=== PATIENT | female | born 1930 | race African-American/Black ===

== ENCOUNTER 2016-09-08 13:57 | Inpatient (IN) | payer OTHER, BC ==
[2016-09-08 15:01] LABS: EOSINOPHIL 1.8 % (0-4.5); MCH 29.8 pg (25.7-33.7); MCHC 34.1 g/dl (32.0-36.0); MEAN CELL VOLUME 87.4 fl (80-96); MEAN PLT VOLUME 10.4 fl (7.5-11.1); NEUTROPHILS 66.9 % (42.8-82.8); PLATELET COUNT 176 K/MM3 (134-434); RDW 15.7 % (11.6-15.6); WHITE BLOOD COUNT 6.3 K/mm3 (4.0-10.0)
--- NOTE | 2016-09-08 15:21 | PDOC ---
History of Present Illness <Maxwell Bey - Last Filed: 09/08/16 15:21> - General History Source: Patient, Old Records Exam Limitations: No Limitations - History of Present Illness Initial Comments: 09/08/16 14:21 The patient is an 86-year-old woman, accompanied by family, with a significant past medical history of hypertension, myocardial infarction, diabetes mellitus, gastrointestinal bleed and diverticulitis who presents to the emergency department for further evaluation of rectal bleeding. Patient states that she experienced some diffuse abdominal cramping today, intermittent in nature, with no exacerbating/alleviating factors. She had a bowel movement this morning and noticed streaks of maroon blood with a clot. She denies nay associated symptoms of chest pain, lightheadedness, dizziness, palpitations, visual changes, headaches, nausea, vomiting, fever, chills. Allergies: No Known Drug Allergies Past Surgical History: None reported Social History: No tobacco, EtOH and recreational drug use. Primary Care Physician: N/A <Shannan Winter - Last Filed: 09/08/16 16:23> <Remi Jett - Last Filed: 09/08/16 17:36> <Bettina Burrell - Last Filed: 09/10/16 02:18> - General Chief Complaint: Rectal Bleed Stated Complaint: BLOOD IN STOOL Time Seen by Provider: 09/08/16 14:21 Past History - Past Medical History Anemia: No Asthma: No Cancer: No Cardiac Disorders: Yes ([place]) CVA: No COPD: No CHF: No Dementia: No Diabetes: Yes Dialysis: No GI Disorders: Yes (DIVERTICULITIS/RECTAL BLEED) Disorders: No HTN: Yes Hypercholesterolemia: No HIV: No Kidney Stones: No Liver Disease: No Seizures: No Thyroid Disease: No - Surgical History Abdominal Surgery: No Appendectomy: No Cardiac Surgery: No Cholecystectomy: No Lung Surgery: No Neurologic Surgery: No Orthopedic Surgery: No - Immunization History Immunization Up to Date: Yes - Psycho/Social/Smoking Cessation Hx Anxiety: No Suicidal Ideation: No Smoking Status: No Smoking History: Never smoked Number of Cigarettes Smoked Daily: 0 Hx Alcohol Use: No Drug/Substance Use Hx: No Substance Use Type: None Hx Substance Use Treatment: No <Maxwell Bey - Last Filed: 09/08/16 15:21> <Shannan Winter - Last Filed: 09/08/16 16:23> <Remi Jett - Last Filed: 09/08/16 17:36> <Bettina Burrell - Last Filed: 09/10/16 02:18> - Past Medical History Allergies/Adverse Reactions: Allergies Allergy/AdvReac Type Severity Reaction Status Date / Time No Known Drug Allergies Allergy Verified 09/08/16 14:01 Home Medications: Ambulatory Orders Amlodipine Besylate [Norvasc -] 10 mg PO DAILY #0 tablet 02/03/13 Valsartan/Hydrochlorothiazide [Diovan Hct 320-25 mg Tablet] 1 combo PO DAILY Aspirin 81 mg PO DAILY #0 tab.chew 09/02/13 Hydrocodone/Acetaminophen [Lortab 7.5-500] 1 - 2 tab PO Q6H PRN #30 tablet 09/02 Review of Systems - Review of Systems Able to Perform ROS?: Yes Comments:: 09/08/16 14:21 GENERAL/CONSTITUTIONAL: No fever or chills. No weakness. HEAD, EYES, EARS, NOSE AND THROAT: No change in vision. No ear pain or discharge. No sore throat. CARDIOVASCULAR: No chest pain or shortness of breath. RESPIRATORY: No cough, wheezing, or hemoptysis. GASTROINTESTINAL: Yes: Hematochezia. No nausea, vomiting, diarrhea or constipation. GENITOURINARY: No dysuria, frequency, or change in urination. MUSCULOSKELETAL: No joint or muscle swelling or pain. No neck or back pain. SKIN: No rash NEUROLOGIC: No headache, vertigo, loss of consciousness, or change in strength/ sensation. ENDOCRINE: No increased thirst. No abnormal weight change. HEMATOLOGIC/LYMPHATIC: No anemia, easy bleeding, or history of blood clots. ALLERGIC/IMMUNOLOGIC: No hives or skin allergy. <Shannan Winter - Last Filed: 09/08/16 16:23> *Physical Exam - Vital Signs Last Vital Signs Temp Pulse Resp BP Pulse Ox 98.0 F 100 H 20 119/66 98 09/08/16 13:58 09/08/16 13:58 09/08/16 13:58 09/08/16 13:58 09/08/16 13:58 <Maxwell Bey - Last Filed: 09/08/16 15:21> - Vital Signs Last Vital Signs Temp Pulse Resp BP Pulse Ox 98.0 F 100 H 20 119/66 98 09/08/16 13:58 09/08/16 13:58 09/08/16 13:58 09/08/16 13:58 09/08/16 13:58 - Physical Exam Comments: 09/08/16 14:21 GENERAL: Awake, alert, and fully oriented, in no acute distress HEAD: No signs of trauma EYES: PERRLA, EOMI, sclera anicteric, conjunctiva clear ENT: Auricles normal inspection, hearing grossly normal, nares patent, oropharynx clear without exudates. Moist mucosa NECK: Normal ROM, supple, no lymphadenopathy, JVD, or masses LUNGS: Breath sounds equal, clear to auscultation bilaterally. No wheezes, and no crackles HEART: Regular rate and rhythm, normal S1 and S2, no murmurs, rubs or gallops ABDOMEN: Soft, nontender, normoactive bowel sounds. No guarding, no rebound. No masses EXTREMITIES: Normal range of motion, no edema. No clubbing or cyanosis. No cords, erythema, or tenderness NEUROLOGICAL: Cranial nerves II through XII grossly intact. Normal speech <Shannan Winter - Last Filed: 09/08/16 16:23> - Vital Signs Last Vital Signs Temp Pulse Resp BP Pulse Ox 98.0 F 88 20 115/76 98 09/08/16 13:58 09/08/16 14:21 09/08/16 13:58 09/08/16 14:21 09/08/16 13:58 <Remi Jett - Last Filed: 09/08/16 17:36> - Vital Signs Last Vital Signs Temp Pulse Resp BP Pulse Ox 98.2 F 86 16 114/57 97 09/08/16 21:58 09/08/16 21:58 09/08/16 21:58 09/08/16 21:58 09/08/16 21:58 <Bettina Burrell - Last Filed: 09/10/16 02:18> Heart Score/ECG Review #1 ECG reviewed & interpreted by me at: 15:15 09/08/16 15:15 Reviewed and interpreted by Dr. Maxwell Bey IMPRESSION: Accelerated junctional rhythm at 87 bpm. Low voltage QRS. Prolonged QT <Shannan Winter - Last Filed: 09/08/16 16:23> ED Treatment Course - LABORATORY CBC & Chemistry Diagram: 09/08/16 14:55 09/08/16 14:55 - ADDITIONAL ORDERS Additional order review: Laboratory Results 09/08/16 14:55 Creatine Kinase Cancelled Troponin I Cancelled Lipase Cancelled 09/08/16 14:55 RBC 3.93 MCV 87.4 MCHC 34.1 RDW 15.7 H D MPV 10.4 Neutrophils % 66.9 Lymphocytes % 22.4 Monocytes % 7.9 Eosinophils % 1.8 Basophils % 1.0 - RADIOLOGY Radiology Studies Ordered: Category Date Time Status ABDOMEN & PELVIS CT WITH CONTR [CT] Stat CT Scan 09/08/16 14:53 Ordered CHEST X-RAY PORTABLE* [RAD] Stat Radiology 09/08/16 14:24 Taken <Maxwell Bey - Last Filed: 09/08/16 15:21> - LABORATORY CBC & Chemistry Diagram: 09/08/16 14:55 09/08/16 14:55 - ADDITIONAL ORDERS Additional order review: Laboratory Results 09/08/16 09/08/16 14:55 14:55 Sodium 141 Potassium 3.7 Chloride 99 Carbon Dioxide 29 Anion Gap 13 BUN 24 H Creatinine 1.3 H D Creat Clearance w eGFR 38.93 Random Glucose 184 H D Calcium 8.5 Total Bilirubin 0.5 D AST 31 D ALT 26 D Alkaline Phosphatase 66 D Creatine Kinase Cancelled 98 Troponin I Cancelled < 0.02 Total Protein 7.2 Albumin 3.3 L Lipase Cancelled 110 09/08/16 14:55 RBC 3.93 MCV 87.4 MCHC 34.1 RDW 15.7 H D MPV 10.4 Neutrophils % 66.9 Lymphocytes % 22.4 Monocytes % 7.9 Eosinophils % 1.8 Basophils % 1.0 <Shannan Winter - Last Filed: 09/08/16 16:23> - LABORATORY CBC & Chemistry Diagram: 09/08/16 14:55 09/08/16 14:55 - ADDITIONAL ORDERS Additional order review: Laboratory Results 09/08/16 09/08/16 09/08/16 14:55 14:55 14:55 INR Sodium 141 Potassium 3.7 Chloride 99 Carbon Dioxide 29 Anion Gap 13 BUN 24 H Creatinine 1.3 H D Creat Clearance w eGFR 38.93 Random Glucose 184 H D Calcium 8.5 Total Bilirubin 0.5 D AST 31 D ALT 26 D Alkaline Phosphatase 66 D Creatine Kinase Cancelled 98 Troponin I Cancelled < 0.02 Total Protein 7.2 Albumin 3.3 L Lipase Cancelled 110 Blood Type O POSITIVE Antibody Screen Negative 09/08/16 14:55 INR 1.17 H Sodium Potassium Chloride Carbon Dioxide Anion Gap BUN Creatinine Creat Clearance w eGFR Random Glucose Calcium Total Bilirubin AST ALT Alkaline Phosphatase Creatine Kinase Troponin I Total Protein Albumin Lipase Blood Type Antibody Screen 09/08/16 14:55 RBC 3.93 MCV 87.4 MCHC 34.1 RDW 15.7 H D MPV 10.4 Neutrophils % 66.9 Lymphocytes % 22.4 Monocytes % 7.9 Eosinophils % 1.8 Basophils % 1.0 <Remi Jett - Last Filed: 09/08/16 17:36> - LABORATORY CBC & Chemistry Diagram: 09/09/16 20:49 09/09/16 06:00 - ADDITIONAL ORDERS Additional order review: Laboratory Results 09/08/16 09/08/16 09/08/16 14:55 14:55 14:55 INR Sodium 141 Potassium 3.7 Chloride 99 Carbon Dioxide 29 Anion Gap 13 BUN 24 H Creatinine 1.3 H D Creat Clearance w eGFR 38.93 Random Glucose 184 H D Calcium 8.5 Total Bilirubin 0.5 D AST 31 D ALT 26 D Alkaline Phosphatase 66 D Creatine Kinase Cancelled 98 Troponin I Cancelled < 0.02 Total Protein 7.2 Albumin 3.3 L Lipase Cancelled 110 Blood Type O POSITIVE Antibody Screen Negative 09/08/16 14:55 INR 1.17 H Sodium Potassium Chloride Carbon Dioxide Anion Gap BUN Creatinine Creat Clearance w eGFR Random Glucose Calcium Total Bilirubin AST ALT Alkaline Phosphatase Creatine Kinase Troponin I Total Protein Albumin Lipase Blood Type Antibody Screen 09/08/16 14:55 RBC 3.93 MCV 87.4 MCHC 34.1 RDW 15.7 H D MPV 10.4 Neutrophils % 66.9 Lymphocytes % 22.4 Monocytes % 7.9 Eosinophils % 1.8 Basophils % 1.0 - RADIOLOGY Radiology Studies Ordered: Category Date Time Status ABDOMEN & PELVIS CT W/O CONTR [CT] Stat CT Scan 09/08/16 19:33 Taken <Bettina Burrell - Last Filed: 09/10/16 02:18> Medical Decision Making - Medical Decision Making 09/08/16 14:21 The patient is an 86-year-old woman, accompanied by family, with a significant past medical history of hypertension, myocardial infarction, diabetes mellitus, gastrointestinal bleed and diverticulitis who presents to the emergency department for further evaluation of rectal bleeding. Patient states that she experienced some diffuse abdominal cramping today, intermittent in nature, with no exacerbating/alleviating factors. She had a bowel movement this morning and noticed streaks of maroon blood with a clot. Will obtain Ct of the abdomen and pelvis with contrast, CBC, CMP. <Shannan Winter - Last Filed: 09/08/16 16:23> - Medical Decision Making 09/08/16 17:36 CT has not been done patient will be signed out to for further treatment. <Remi Jett - Last Filed: 09/08/16 17:36> - Medical Decision Making 09/10/16 02:[address] Sales who was covering for Dr.Barbara Cleary The patient was admitted for repeat CBC and GI consultation <Bettina Burrell - Last Filed: 09/10/16 02:18> *DC/Admit/Observation/Transfer - Attestations Physician Attestion: 09/08/16 15:21 I, Dr. Maxwell Bey, attest that this document has been prepared under my direction and personally reviewed by me in its entirety. I further attest, that it accurately reflects all work, treatment, procedures and medical decision -making performed by me. <Maxwell Bey - Last Filed: 09/08/16 15:21> - Attestations Scribe Attestion: 09/08/16 14:21 Documentation prepared by Shannan Winter, acting as medical assisting program director for Maxwell Bey DO. <Shannan Winter - Last Filed: 09/08/16 16:23> <Remi Jett - Last Filed: 09/08/16 17:36> - Discharge Dispostion Admit: Yes <Bettina Burrell - Last Filed: 09/10/16 02:18> Diagnosis at time of Disposition: Rectal bleeding
[2016-09-08 15:26] LABS: ALBUMIN 3.3 g/dl (3.4-5.0); ANION GAP 13 (8-16); BILIRUBIN,TOTAL 0.5 mg/dL (0.2-1.0); CALCIUM 8.5 mg/dL (8.5-10.1); CO2 29 mmol/L (21-32); CREATININE 1.3 mg/dL (0.55-1.02); GLUCOSE,RANDOM 184 mg/dL (74-106); SGPT/ALT 26 U/L (12-78); TOT PROT 7.2 g/dl (6.4-8.2)
[2016-09-08 15:29] LABS: ALK PHOS 66 U/L (45-117); TROPONIN I < 0.02 ng/ml (0.00-0.05)
[2016-09-08 15:30] LABS: SGOT/AST 31 U/L (15-37)
[2016-09-08 16:01] LABS: INR 1.17 (0.82-1.09); PROTHROMBIN TIME (PATIENT) 12.9 SEC (9.98-11.88)
[2016-09-08] MEDS ORDERED: VALSARTAN 160 MG TABLET (UD) PO ONE (22:38)
[2016-09-08] MEDS ORDERED: HYDROCHLOROTHIAZIDE 25 MG TABLET (FP) PO ONE (22:39)
[2016-09-08] MEDS ORDERED: VALSARTAN 80 MG TABLET (UD) ONE ×2 (22:56→23:04)
[2016-09-09 06:06] LABS: BASOPHIL 0.8 % (0-2.0); EOSINOPHIL 2.2 % (0-4.5); MCH 28.5 pg (25.7-33.7); MCHC 32.7 g/dl (32.0-36.0); MEAN CELL VOLUME 87.3 fl (80-96); MEAN PLT VOLUME 10.4 fl (7.5-11.1); NEUTROPHILS 59.6 % (42.8-82.8); PLATELET COUNT 132 K/MM3 (134-434); RDW 15.7 % (11.6-15.6); WHITE BLOOD COUNT 5.3 K/mm3 (4.0-10.0)
[2016-09-09 06:43] LABS: ALBUMIN 3.1 g/dl (3.4-5.0); BILIRUBIN,TOTAL 0.4 mg/dL (0.2-1.0); CALCIUM 8.5 mg/dL (8.5-10.1); COCKROFT - GAULT 58.8965; MAGNESIUM 2.1 mg/dL (1.8-2.4); TOT PROT 6.5 g/dl (6.4-8.2)
[2016-09-09 09:59] VITALS: BMI 32.4
--- NOTE | 2016-09-09 10:46 | HP ---
Admitting History and Physical - Admission Chief Complaint: rectal bleeding History of Present Illness: The patient is an 86-year-old woman, accompanied by family, with a significant past medical history of hypertension, myocardial infarction, diabetes mellitus, gastrointestinal bleed and diverticulitis who presents to the emergency department for further evaluation of rectal bleeding. Patient states that she experienced some diffuse abdominal cramping today, intermittent in nature, with no exacerbating/alleviating factors. She had a bowel movement this morning and noticed streaks of maroon blood with a clot. She denies nay associated symptoms of chest pain, lightheadedness, dizziness, palpitations, visual changes, headaches, nausea, vomiting, fever, chills. Allergies: No Known Drug Allergies History Source: Patient Limitations to Obtaining History: No Limitations, Clinical Condition - Past Medical History Cardiovascular: Yes: HTN, Hyperlipdemia Gastrointestinal: Yes: Constipation, Diverticulitis (hx of 2 previous episodes 2012 required 4 units PRBC / 2012), Diverticulosis ...: No Musculoskeletal: Yes: Osteoarthritis - Smoking History Smoking history: Never smoked Aproximately how many cigarettes per day: 0 - Alcohol/Substance Use Hx Alcohol Use: No History of Substance Use: reports: None - Social History ADL: Independent History of Recent Travel: No Home Medications - Allergies Allergies/Adverse Reactions: Allergies Allergy/AdvReac Type Severity Reaction Status Date / Time No Known Drug Allergies Allergy Verified 09/08/16 14:01 - Home Medications Home Medications: Ambulatory Orders Amlodipine Besylate [Norvasc -] 10 mg PO DAILY #0 tablet 02/03/13 Valsartan/Hydrochlorothiazide [Diovan Hct 320-25 mg Tablet] 1 combo PO DAILY Aspirin 81 mg PO DAILY #0 tab.chew 09/02/13 Hydrocodone/Acetaminophen [Lortab 7.5-500] 1 - 2 tab PO Q6H PRN #30 tablet 09/02 Anastrozole [Arimidex -] 1 mg PO DAILY 09/10/16 Cholecalciferol (Vitamin D3) [Vitamin D3] 50,000 unit PO WEEKLY 09/10/16 Metoprolol Succinate [Toprol Xl] 50 mg PO DAILY 09/10/16 Oxybutynin Chloride 5 mg PO DAILY 09/10/16 Review of Systems - Review of Systems Constitutional: reports: No Symptoms Eyes: reports: No Symptoms HENT: reports: No Symptoms Neck: reports: No Symptoms Cardiovascular: reports: No Symptoms Respiratory: reports: No Symptoms Gastrointestinal: reports: Abdominal Pain, Constipation, Nausea, Rectal Bleeding Genitourinary: reports: No Symptoms Musculoskeletal: reports: No Symptoms Integumentary: reports: No Symptoms Neurological: reports: No Symptoms Endocrine: reports: No Symptoms Hematology/Lymphatic: reports: No Symptoms Psychiatric: reports: No Symptoms Physical Examination Vital Signs: Vital Signs Temperature 97.8 F 09/09/16 09:44 Pulse Rate 90 09/09/16 09:44 Respiratory Rate 18 09/09/16 09:44 Blood Pressure 145/95 09/09/16 09:44 O2 Sat by Pulse Oximetry (%) 92 L 09/09/16 09:44 Constitutional: Yes: Well Nourished, No Distress, Calm Eyes: Yes: WNL, Conjunctiva Clear HENT: Yes: WNL, Atraumatic, Normocephalic Neck: Yes: WNL, Supple, Trachea Midline Cardiovascular: Yes: WNL, Regular Rate and Rhythm Respiratory: Yes: WNL, CTA Bilaterally Gastrointestinal: Yes: WNL, Normal Bowel Sounds, Soft, Abdomen, Obese, Rectal Bleeding, Other Renal/: Yes: WNL Breast(s): Yes: WNL Musculoskeletal: Yes: WNL Extremities: Yes: WNL Edema: No Peripheral Pulses WNL: Yes Integumentary: Yes: WNL Neurological: Yes: WNL, Alert, Oriented ...Motor Strength: WNL Psychiatric: Yes: WNL, Alert, Oriented Labs: CBC, BMP 09/09/16 06:00 09/09/16 06:00 Problem List - Problems (1) Rectal bleeding Code(s): K62.5 - HEMORRHAGE OF ANUS AND RECTUM (2) Abdominal pain Code(s): R10.9 - UNSPECIFIED ABDOMINAL PAIN (3) Constipation Code(s): K59.00 - CONSTIPATION, UNSPECIFIED (4) Diverticula of colon Code(s): K57.30 - DVRTCLOS OF LG INT W/O PERFORATION OR ABSCESS W/O BLEEDING (5) Nausea & vomiting Code(s): R11.2 - NAUSEA WITH VOMITING, UNSPECIFIED (6) Nausea and vomiting in adult Code(s): R11.2 - NAUSEA WITH VOMITING, UNSPECIFIED (7) Hypertension Code(s): I10 - ESSENTIAL (PRIMARY) HYPERTENSION
[2016-09-09] MEDS: POTASSIUM CHLORIDE ORAL LIQUID 20 MEQ/15 ML PO SCH ×2 (12:10→22:02)
[2016-09-09] MEDS: amLODIPine BESYLATE 10 MG TABLET (FP) PO SCH (12:10)
--- NOTE | 2016-09-09 14:05 | EKG ---
Test Reason : Blood Pressure : / mmHG Vent. Rate : 087 BPM Atrial Rate : 088 BPM P-R Int : 000 ms QRS Dur : 070 ms QT Int : 488 ms P-R-T Axes : 000 -02 021 degrees QTc Int : 587 ms LIKELY SINUS RHYTHM WITH 1ST DEGREE AV BLOCK LOW VOLTAGE QRS CANNOT RULE OUT ANTERIOR INFARCT , AGE UNDETERMINED PROLONGED QT ABNORMAL ECG WHEN COMPARED WITH ECG OF 27-AUG-2013 18:49, NO SIGNIFICANT CHANGE WAS FOUND Confirmed by EDU SHEA MD ([id number]) on 09/09/2016 2:05:30 PM Referred By: Confirmed By:EDU SHEA MD
[2016-09-09] MEDS ORDERED: ONDANSETRON 4 MG/2 ML VIAL ONE (20:25)
[2016-09-09] MEDS ORDERED: ONDANSETRON 4 MG/2 ML VIAL IVPB PRN (20:28)
--- NOTE | 2016-09-09 20:39 | CON.GI ---
Consult Consult Specialty:: GI Referred by:: Dr Rodriguez Reason for Consultation:: GI bleed - History of Present Illness Chief Complaint: Maroon stools History of Present Illness: Very pleasant 86 F seen in the past by myself for diverticular bleed. She had a bleeding episode in 2011 requiring 4 units PRBC. She had another bleed in 2012. EGD and colon done Jan 2013 revealed only diverticulosis. She is curently feeling well. She had crampy lower abdominal pain earlier and an episode of vomiting. She has had 3 episodes of hematochezia since being admitted. She has no pain at this time. Other relevant PMH includes HTN, CAD with OK and DM. - History Source History Provided By: Patient, Medical Record Limitations to Obtaining History: No Limitations - Past Medical History Cardio/Vascular: Yes: CAD, OK Gastrointestinal: Yes: Diverticulosis, GI Bleed ...: No - Alcohol/Substance Use Hx Alcohol Use: No - Smoking History Smoking history: Never smoked Aproximately how many cigarettes per day: 0 Home Medications - Allergies Allergies/Adverse Reactions: Allergies Allergy/AdvReac Type Severity Reaction Status Date / Time No Known Drug Allergies Allergy Verified 09/08/16 14:01 - Home Medications Home Medications: Ambulatory Orders Amlodipine Besylate [Norvasc -] 10 mg PO DAILY #0 tablet 02/03/13 Valsartan/Hydrochlorothiazide [Diovan Hct 320-25 mg Tablet] 1 combo PO DAILY Aspirin 81 mg PO DAILY #0 tab.chew 09/02/13 Hydrocodone/Acetaminophen [Lortab 7.5-500] 1 - 2 tab PO Q6H PRN #30 tablet 09/02 Physical Exam-GI Vital Signs: Vital Signs Temperature 98.1 F 09/09/16 18:00 Pulse Rate 89 09/09/16 18:00 Respiratory Rate 18 09/09/16 18:00 Blood Pressure 135/67 09/09/16 18:00 O2 Sat by Pulse Oximetry (%) 92 L 09/09/16 09:45 Constitutional: Yes: Well Nourished, Calm HENT: Yes: Normocephalic Neck: Yes: Supple Cardiovascular: Yes: Regular Rate and Rhythm, Murmur (2-3/6 DENISHA LSB) Respiratory: Yes: CTA Bilaterally Gastrointestinal Inspection: Yes: WNL ...Auscultate: Yes: Normoactive Bowel Sounds ...Palpate: Yes: Soft, Tenderness (mild, LLQ) ...Percussion: Yes: Dullness Labs: CBC, BMP 09/09/16 06:00 09/09/16 06:00 INR, PTT INR 1.17 (0.82-1.09) H 09/08/16 14:55 Imaging - Results Cat Scan: Report Reviewed (Sigmoid diverticulosis only.) Assessment/Plan 86 F with above history, S/P diverticular bleed x 2 in the past, now admitted with same. There is no active bleeding at this time. Rec: Clear liquid diet Follow H&H q 12 hours No need for transfusion Notify me if catastrophic bleeding occurs (more than 300 ml) No need for AXR now Poor candidate for procedures but will do if catastrophic bleeding noted. Will follow.
[2016-09-09 20:52] LABS: MCH 28.8 pg (25.7-33.7); MCHC 32.7 g/dl (32.0-36.0); MEAN CELL VOLUME 88.3 fl (80-96); MEAN PLT VOLUME 10.5 fl (7.5-11.1); PLATELET COUNT 135 K/MM3 (134-434); RDW 15.4 % (11.6-15.6); WHITE BLOOD COUNT 10.3 K/mm3 (4.0-10.0)
[2016-09-09] MEDS: DOCUSATE SODIUM 100 MG CAPSULE (FP) PO SCH (22:01)
[2016-09-09] MEDS: ANASTROZOLE 1 MG TABLET PO SCH (22:01)
[2016-09-09] MEDS: METOPROLOL SUCCINATE 50 MG TAB.SR.24H (FP) PO SCH (22:01)
[2016-09-10 07:09] LABS: BASOPHIL 0.3 % (0-2.0); EOSINOPHIL 0.7 % (0-4.5); MCH 29.2 pg (25.7-33.7); MCHC 33.4 g/dl (32.0-36.0); MEAN CELL VOLUME 87.5 fl (80-96); MEAN PLT VOLUME 11.2 fl (7.5-11.1); NEUTROPHILS 79.7 % (42.8-82.8); PLATELET COUNT 140 K/MM3 (134-434); RDW 15.6 % (11.6-15.6); WHITE BLOOD COUNT 9.5 K/mm3 (4.0-10.0)
[2016-09-10 08:26] LABS: CALCIUM 8.7 mg/dL (8.5-10.1); COCKROFT - GAULT 57.426
[2016-09-10] MEDS ORDERED: PT OWN MED DRAWER 7, Y5N ONE ×2 (09:40→21:19)
[2016-09-10] MEDS: DOCUSATE SODIUM 100 MG CAPSULE (FP) PO SCH ×2 (09:50→22:09)
[2016-09-10] MEDS: ANASTROZOLE 1 MG TABLET PO SCH (09:50)
[2016-09-10] MEDS: METOPROLOL SUCCINATE 50 MG TAB.SR.24H (FP) PO SCH (09:51)
[2016-09-10] MEDS: VALSARTAN 160 MG TABLET (UD) PO SCH (09:51)
[2016-09-10] MEDS: HYDROCHLOROTHIAZIDE 25 MG TABLET (FP) PO SCH (09:51)
[2016-09-10] MEDS: amLODIPine BESYLATE 10 MG TABLET (FP) PO SCH (09:51)
[2016-09-10] MEDS: POTASSIUM CHLORIDE ORAL LIQUID 20 MEQ/15 ML PO SCH ×2 (10:43→22:09)
--- NOTE | 2016-09-10 21:59 | PN ---
Progress Note (short form) - Note Progress Note: Appreciate Dr Bradford consult and recommendations patient seen and examined in her room c/o constipation, reports no more blood in stool tolerating full liquid diet Vital Signs Period Temp Pulse Resp BP Sys/Caldera Pulse Ox Last 24 Hr 97.6 F-99.1 F 65-115 18-18 101-141/46-83 94-94 neck supple heart regular S1/S2 lungs clear bilat abd soft non tender / no guarding ext no calf tenderness CBC, BMP 09/10/16 05:35 09/10/16 05:35 Active Medications Amlodipine Besylate (Norvasc -) 10 mg PO DAILY [facility] Last Admin: 09/10/16 09:51 Dose: 10 mg Anastrozole (Arimidex -) 1 mg PO DAILY [facility] Last Admin: 09/10/16 09:50 Dose: 1 mg Docusate Sodium (Colace -) 200 mg PO BID [facility] Last Admin: 09/10/16 09:50 Dose: 200 mg Hydrochlorothiazide (Hctz -) 25 mg PO DAILY [facility] Last Admin: 09/10/16 09:51 Dose: 25 mg Metoprolol Succinate (Toprol Xl -) 50 mg PO DAILY [facility] Last Admin: 09/10/16 09:51 Dose: 50 mg Ondansetron HCl (Zofran Injection) 4 mg IVPB Q6H PRN PRN Reason: NAUSEA AND/OR VOMITING Last Admin: 09/09/16 20:32 Dose: 4 mg Potassium Chloride (Potassium Chloride Oral Liquid) 20 meq PO BID [facility] Last Admin: 09/10/16 10:43 Dose: Not Given Valsartan (Diovan -) 320 mg PO DAILY [facility] Last Admin: 09/10/16 09:51 Dose: 320 mg appreciate GI consult will advance diet as tolerated discussed with Nurse Problem List - Problems (1) Rectal bleeding Code(s): K62.5 - HEMORRHAGE OF ANUS AND RECTUM (2) Nausea and vomiting in adult Code(s): R11.2 - NAUSEA WITH VOMITING, UNSPECIFIED (3) Abdominal pain Code(s): R10.9 - UNSPECIFIED ABDOMINAL PAIN (4) Diverticula of colon Code(s): K57.30 - DVRTCLOS OF LG INT W/O PERFORATION OR ABSCESS W/O BLEEDING (5) Hypertension Code(s): I10 - ESSENTIAL (PRIMARY) HYPERTENSION
[2016-09-11 07:51] LABS: BASOPHIL 0.7 % (0-2.0); EOSINOPHIL 2.6 % (0-4.5); MCH 29.3 pg (25.7-33.7); MCHC 33.2 g/dl (32.0-36.0); MEAN PLT VOLUME 10.9 fl (7.5-11.1); NEUTROPHILS 62.1 % (42.8-82.8); PLATELET COUNT 140 K/MM3 (134-434); RDW 15.7 % (11.6-15.6)
[2016-09-11 08:59] LABS: CALCIUM 8.6 mg/dL (8.5-10.1); COCKROFT - GAULT 52.207; CREATININE 1.1 mg/dL (0.55-1.02)
[2016-09-11] MEDS ORDERED: PT OWN MED DRAWER 7, Y5N ONE (09:30)
[2016-09-11] MEDS: ANASTROZOLE 1 MG TABLET PO SCH (09:34)
[2016-09-11] MEDS: DOCUSATE SODIUM 100 MG CAPSULE (FP) PO SCH ×2 (09:35→21:32)
[2016-09-11] MEDS: VALSARTAN 160 MG TABLET (UD) PO SCH (09:35)
[2016-09-11] MEDS: HYDROCHLOROTHIAZIDE 25 MG TABLET (FP) PO SCH (09:35)
[2016-09-11] MEDS: METOPROLOL SUCCINATE 50 MG TAB.SR.24H (FP) PO SCH (09:35)
[2016-09-11] MEDS: amLODIPine BESYLATE 10 MG TABLET (FP) PO SCH (09:35)
--- NOTE | 2016-09-11 09:51 | PN ---
Progress Note (short form) - Note Progress Note: feeling well no N/V c/o of no BM today but denies abd pain Vital Signs Period Temp Pulse Resp BP Sys/Caldera Pulse Ox Last 24 Hr 97.6 F-98.8 F 60-73 18-18 101-124/52-74 94-96 neck supple heart S1/S2 Lung clear bilat abd soft non tender / no guarding / BS + Ext no calf tenderness CBC, BMP 09/11/16 05:38 09/11/16 05:38 Active Medications Amlodipine Besylate (Norvasc -) 10 mg PO DAILY [facility] Last Admin: 09/11/16 09:35 Dose: 10 mg Anastrozole (Arimidex -) 1 mg PO DAILY [facility] Last Admin: 09/11/16 09:34 Dose: 1 mg Docusate Sodium (Colace -) 200 mg PO BID [facility] Last Admin: 09/11/16 09:35 Dose: 200 mg Hydrochlorothiazide (Hctz -) 25 mg PO DAILY [facility] Last Admin: 09/11/16 09:35 Dose: 25 mg Metoprolol Succinate (Toprol Xl -) 50 mg PO DAILY [facility] Last Admin: 09/11/16 09:35 Dose: 50 mg Ondansetron HCl (Zofran Injection) 4 mg IVPB Q6H PRN PRN Reason: NAUSEA AND/OR VOMITING Last Admin: 09/09/16 20:32 Dose: 4 mg Polyethylene Glycol (Miralax (For Daily Use) -) 17 gm PO BID [facility] Potassium Chloride (Potassium Chloride Oral Liquid) 20 meq PO BID [facility] Last Admin: 09/10/16 22:09 Dose: 20 meq Valsartan (Diovan -) 320 mg PO DAILY [facility] Last Admin: 09/11/16 09:35 Dose: 320 mg H/H has remained stable tolerating diet will advance to regular / low salt if patient is able to tolerate diet and no further blood in stool will d/c home with out patient follow up Problem List - Problems (1) Rectal bleeding Code(s): K62.5 - HEMORRHAGE OF ANUS AND RECTUM (2) Abdominal pain Code(s): R10.9 - UNSPECIFIED ABDOMINAL PAIN (3) Constipation Code(s): K59.00 - CONSTIPATION, UNSPECIFIED (4) Diverticula of colon Code(s): K57.30 - DVRTCLOS OF LG INT W/O PERFORATION OR ABSCESS W/O BLEEDING (5) Nausea & vomiting Code(s): R11.2 - NAUSEA WITH VOMITING, UNSPECIFIED (6) Nausea and vomiting in adult Code(s): R11.2 - NAUSEA WITH VOMITING, UNSPECIFIED (7) Hypertension Code(s): I10 - ESSENTIAL (PRIMARY) HYPERTENSION
[2016-09-11] MEDS: POLYETHYLENE GLYCOL 3350 119 GM BTL PO SCH ×2 (11:13→21:33)
[2016-09-11] MEDS: POTASSIUM CHLORIDE ORAL LIQUID 20 MEQ/15 ML PO SCH ×2 (11:14→21:33)
[2016-09-11 18:31] LABS: MCHC 32.9 g/dl (32.0-36.0); MEAN CELL VOLUME 88.1 fl (80-96); MEAN PLT VOLUME 10.8 fl (7.5-11.1); PLATELET COUNT 159 K/MM3 (134-434); RDW 15.5 % (11.6-15.6); WHITE BLOOD COUNT 6.3 K/mm3 (4.0-10.0)
[2016-09-11 21:17] LABS: PLATELET ESTIMATE ADEQUATE (NORMAL)
[2016-09-12 06:44] LABS: BASOPHIL 0.7 % (0-2.0); EOSINOPHIL 2.9 % (0-4.5); MCHC 33.1 g/dl (32.0-36.0); MEAN CELL VOLUME 87.7 fl (80-96); MEAN PLT VOLUME 10.3 fl (7.5-11.1); NEUTROPHILS 55.3 % (42.8-82.8); PLATELET COUNT 138 K/MM3 (134-434); RDW 15.8 % (11.6-15.6); WHITE BLOOD COUNT 5.2 K/mm3 (4.0-10.0)
[2016-09-12] MEDS: VALSARTAN 160 MG TABLET (UD) PO SCH (10:25)
[2016-09-12] MEDS: POTASSIUM CHLORIDE ORAL LIQUID 20 MEQ/15 ML PO SCH (10:25)
[2016-09-12] MEDS: amLODIPine BESYLATE 10 MG TABLET (FP) PO SCH (10:25)
[2016-09-12] MEDS: HYDROCHLOROTHIAZIDE 25 MG TABLET (FP) PO SCH (10:25)
[2016-09-12] MEDS: METOPROLOL SUCCINATE 50 MG TAB.SR.24H (FP) PO SCH (10:25)
[2016-09-12] MEDS: ANASTROZOLE 1 MG TABLET PO SCH (10:26)
[2016-09-12] MEDS: POLYETHYLENE GLYCOL 3350 119 GM BTL PO SCH (10:26)
[2016-09-12] MEDS: DOCUSATE SODIUM 100 MG CAPSULE (FP) PO SCH (10:26)
[2016-09-12 10:27] VITALS: BP 111/87; PULSE 101; TEMP 98.1
== END 2016-09-12 13:38 | disposition home or self-care (01) | DRG 379 ==
LOC: JER 13:57 → JERBED 22:06 → J4S 09-09 06:44
PROVIDERS: ADMIT Family Medicine; ATTEND Family Medicine
DX: K57.31 Diverticulosis of large intestine without perforation or abscess with bleeding (principal); K62.5 Hemorrhage of anus and rectum; K59.00 Constipation, unspecified; I10 Essential (primary) hypertension; I25.2 Old myocardial infarction; E11.9 Type 2 diabetes mellitus without complications; M19.90 Unspecified osteoarthritis, unspecified site; I25.10 Atherosclerotic heart disease of native coronary artery without angina pectoris
CPT/HCPCS: 36415; 71010-TC; 74176-TC; 80048; 80053; 82550; 83690; 83735; 84484; 85025; 85027; 85610; 86850; 86900; 86901; 93005; 93010; 99283-25

== ENCOUNTER 2018-02-27 14:35 | Inpatient (IN) | payer OTHER, BC ==
--- NOTE | 2018-02-27 15:01 | PDOC ---
Rapid Medical Evaluation Chief Complaint: Pain Time Seen by Provider: 02/27/18 14:57 Medical Evaluation: Allergies Allergy/AdvReac Type Severity Reaction Status Date / Time No Known Drug Allergies Allergy Verified 09/08/16 14:01 02/27/18 14:57 Pt with PMH of diverticulitis presents for rectal bleeding. She states there was large amounts of bright red blood in the toilet the last two days with clots. Pt states that this has happened to her in the past when shes had diverticulitis. Denies fevers, chills, nausea, vomiting and abdominal pain. Exam: NAD, breathing easily Orders: Labs, urine Pt to proceed to ED for further evaluation Discharge Disposition - Diagnosis Rectal bleeding - Referrals Referrals: Estella Rodriguez MD [Primary Care Provider] - - Patient Instructions - Post Discharge Activity
--- NOTE | 2018-02-27 15:30 | PDOC ---
History of Present Illness - General Chief Complaint: Pain Stated Complaint: ABD PAIN Time Seen by Provider: 02/27/18 14:57 History Source: Patient Exam Limitations: No Limitations - History of Present Illness Initial Comments: 02/27/18 15:30 The patient is an 87F with a PMH of hypertension, myocardial infarction, diabetes mellitus, gastrointestinal bleed and diverticulitis who presents to the ER with complaints of BRBPR and passing clots in her stool. She states that she had a BM yesterday and noticed that. She's had "a few episodes" since yesterday but today feels fatigued and weak. She denies any other symptoms including fevers, chills, nausea, vomiting, CP, SOB, abdominal pain, lightheadedness, or palpitations. Past History - Past Medical History Allergies/Adverse Reactions: Allergies Allergy/AdvReac Type Severity Reaction Status Date / Time No Known Drug Allergies Allergy Verified 02/27/18 15:00 Home Medications: Ambulatory Orders Amlodipine Besylate [Norvasc -] 10 mg PO DAILY #0 tablet 02/03/13 Valsartan/Hydrochlorothiazide [Diovan Hct 320-25 mg Tablet] 1 combo PO DAILY Aspirin 81 mg PO DAILY #0 tab.chew 09/02/13 Anastrozole [Arimidex -] 1 mg PO DAILY 09/10/16 Cholecalciferol (Vitamin D3) [Vitamin D3] 50,000 unit PO WEEKLY 09/10/16 Metoprolol Succinate [Toprol Xl] 50 mg PO DAILY 09/10/16 Oxybutynin Chloride 5 mg PO DAILY 09/10/16 Amlodipine Besylate [Norvasc -] 10 mg PO DAILY #0 tablet 09/12/16 Anastrozole [Arimidex -] 1 mg PO DAILY tablet 09/12/16 Docusate Sodium [Colace -] 200 mg PO BID #120 tab 09/12/16 Polyethylene Glycol 3350 [Miralax 119 gm Btl -] 17 gm PO BID #1 bottle 09/12/16 Anemia: No Asthma: No Cancer: No Cardiac Disorders: Yes ([place]) CVA: No COPD: No CHF: No Dementia: No Diabetes: Yes Dialysis: No GI Disorders: Yes (DIVERTICULITIS/RECTAL BLEED) Disorders: No HTN: Yes Hypercholesterolemia: No Kidney Stones: No Liver Disease: No Seizures: No Thyroid Disease: No - Surgical History Abdominal Surgery: No Appendectomy: No Cardiac Surgery: No Cholecystectomy: No Lung Surgery: No Neurologic Surgery: No Orthopedic Surgery: No - Immunization History Immunization Up to Date: Yes - Suicide/Smoking/Psychosocial Hx Smoking Status: No Smoking History: Never smoked Have you smoked in the past 12 months: No Number of Cigarettes Smoked Daily: 0 Information on smoking cessation initiated: No Hx Alcohol Use: No Drug/Substance Use Hx: No Substance Use Type: None Hx Substance Use Treatment: No Review of Systems - Review of Systems Able to Perform ROS?: Yes Comments:: 02/27/18 17:19 GENERAL/CONSTITUTIONAL: No fever or chills. No weakness. HEAD, EYES, EARS, NOSE AND THROAT: No change in vision. No ear pain or discharge. No sore throat. CARDIOVASCULAR: No chest pain, palpitations, or lightheadedness. RESPIRATORY: No cough, wheezing, shortness of breath, or hemoptysis. GASTROINTESTINAL: Positive for BRBPR and passing clots in stool. No nausea, vomiting, or abdominal pain. GENITOURINARY: No dysuria, frequency, hematuria, or change in urination. MUSCULOSKELETAL: No joint or muscle swelling or pain. No neck or back pain. SKIN: No rash or lesions. NEUROLOGIC: No headache, numbness, tingling, focal weakness, loss of consciousness, or change in strength/sensation. Is the patient limited [place] proficient: No *Physical Exam - Vital Signs Last Vital Signs Temp Pulse Resp BP Pulse Ox 97.3 F L 67 19 108/61 98 02/27/18 14:57 02/27/18 14:57 02/27/18 14:57 02/27/18 14:57 02/27/18 14:57 - Physical Exam Comments: 02/27/18 17:20 GENERAL: Well developed, well nourished. Awake and alert. No acute distress. HEENT: Normocephalic, atraumatic. Hearing grossly normal. Moist mucous membranes. PERRLA, EOMI. No conjunctival pallor. Sclera are non-icteric. NECK: Supple. Full ROM. No JVD. CARDIOVASCULAR: Regular rate and rhythm. No murmurs, rubs, or gallops. PULMONARY: No evidence of respiratory distress. Lungs clear to auscultation bilaterally. No wheezing, rales or rhonchi. ABDOMINAL: Soft. Non-tender. Non-distended. No rebound or guarding. RECTAL: Grossly bloody stool. Normal rectal tone. GENITOURINARY: No CVA tenderness bilaterally. MUSCULOSKELETAL: Normal range of motion at all joints. No bony deformities or tenderness. EXTREMITIES: No cyanosis. No clubbing. No edema. No calf tenderness or swelling. SKIN: Warm and dry. Normal capillary refill. No rashes. No jaundice. NEUROLOGICAL: Alert, awake, appropriate. Cranial nerves 2-12 grossly intact. Normal speech. Gait is normal without ataxia. PSYCHIATRIC: Cooperative. Good eye contact. Appropriate mood and affect. ED Treatment Course - LABORATORY CBC & Chemistry Diagram: 02/27/18 15:45 02/27/18 15:45 Medical Decision Making - Medical Decision Making 02/27/18 17:15 The patient is an 87F with a PMH of diverticulitis who presents after having BRBPR and passing clots in her BM. Stool occult positive. Hgb at 11.4, WNL. Will repeat Hgb and place pt on monitor. EKG unremarkable. Will d/w Dr. Short. 02/27/18 18:12 No call back from Dr. Short. Will page x 2. Pt is stable. 02/27/18 18:46 No call back from Dr. Short. Page x 3. Hgb repeat at 1945. 02/27/18 19:45 Case d/w Dr. Short who advises to keep pt for at least observation. I have endorsed the patient to Dr. Rodriguez for admission. *DC/Admit/Observation/Transfer Diagnosis at time of Disposition: Rectal bleeding - Discharge Dispostion Condition at time of disposition: Guarded Decision to Admit order: Yes - Referrals - Patient Instructions - Post Discharge Activity
[2018-02-27 15:58] LABS: BASO % 0.4 % (0-2.0); HEMATOCRIT 34.8 % (32.4-45.2); HEMOGLOBIN 11.9 GM/dL (10.7-15.3); LYMPH % 22.8 % (8-40); MCH 30.2 pg (25.7-33.7); MCHC 34.1 g/dl (32.0-36.0); MEAN CELL VOLUME 88.4 fl (80-96); MEAN PLT VOLUME 10.9 fl (7.5-11.1); MONO % 8.1 % (3.8-10.2); NEUT % 65.7 % (42.8-82.8); PLATELET COUNT 148 K/MM3 (134-434); RBC 3.94 M/mm3 (3.60-5.2); RDW 15.9 % (11.6-15.6); WHITE BLOOD COUNT 4.9 K/mm3 (4.0-10.0)
[2018-02-27 16:04] LABS: INR 1.2 (0.83-1.09); PROTHROMBIN TIME (PATIENT) 14.2 SEC (9.7-13.0)
[2018-02-27 16:41] LABS: ALBUMIN 3.4 g/dl (3.4-5.0); ALK PHOS 72 U/L (45-117); ANION GAP 6 MMOL/L (8-16); BILIRUBIN,TOTAL 0.4 mg/dL (0.2-1); BLOOD UREA NITROGEN 25 mg/dL (7-18); CALCIUM 8.7 mg/dL (8.5-10.1); CHLORIDE 101 mmol/L (98-107); CO2 31 mmol/L (22-28); CREATININE 1.2 mg/dL (0.55-1.3); GLUCOSE,RANDOM 210 mg/dL (74-106); SGOT/AST 17 U/L (15-37); SGPT/ALT 15 U/L (13-61); SODIUM 138 mmol/L (136-145); TOT PROT 7.3 g/dl (6.4-8.2)
--- NOTE | 2018-02-27 17:12 | PDOC ---
Attending Attestation - Resident Resident Name: Jose Henderson - ED Attending Attestation I have performed the following: I have examined & evaluated the patient, The case was reviewed & discussed with the resident, I agree w/resident's findings & plan, Exceptions are as noted - HPI HPI: 02/27/18 17:10 The patient is a 87 year old female, with a significant past medical history of hypertension, [place], GI bleed, diverticulitis, who presents to the emergency department with bright red blood per rectum x 2 days. Pt states that since yesterday she has had 3 episodes of blood-streaked stool. She reports seeing brown stool mixed with red blood and a few clots. Denies any abdominal pain. Denies CP/SOB/lightheadedness/palpitations. The patient denies chest pain, shortness of breath, headache and dizziness. The patient denies fever, chills, nausea, vomit, diarrhea and constipation. The patient denies dysuria, frequency, urgency and hematuria. Allergies: NKDA PCP - Dr. Rodriguez - Physicial Exam PE: 02/27/18 17:11 GENERAL: Awake, alert, and fully oriented, in no acute distress. HEAD: No signs of trauma EYES: PERRLA, EOMI, sclera anicteric, conjunctiva clear ENT: Auricles normal inspection, hearing grossly normal, nares patent, oropharynx clear without exudates. Moist mucosa NECK: Nontender, no stepoffs, Normal ROM, supple, no lymphadenopathy, JVD, or masses LUNGS: Breath sounds equal, clear to auscultation bilaterally. No wheezes, and no crackles HEART: Regular rate and rhythm, normal S1 and S2, no murmurs, rubs or gallops ABDOMEN: Soft, nontender, normoactive bowel sounds. No guarding, no rebound. No masses EXTREMITIES: Normal range of motion, no edema. No clubbing or cyanosis. No cords, erythema, or tenderness NEUROLOGICAL: Cranial nerves II through XII intact. 5/5 strength and sensation in all extremities, Normal speech, normal gait, normal cerebellar function SKIN: Warm, Dry, normal turgor, no rashes or lesions noted. - Medical Decision Making 02/27/18 17:12 87 F with h/o diverticulosis presenting with BRPBR. Pt HD stable with benign abdomen. Suspect diverticular bleed. - Labs, coags - Consult pt's GI Dr. Short - Trend CBC Labs wnl Guaiac + Dr. Short consulted Will admit obs.
[2018-02-27 18:38] LABS: URINE APPEARANCE SLCLOUDY; URINE BILIRUBIN NEGATIVE (<2.0 mg/dL); URINE COLOR YELLOW; URINE GLUCOSE (UA) NEGATIVE (NEGATIVE); URINE KETONE NEGATIVE (NEGATIVE); URINE LEUK ESTERASE TRACE (NEGATIVE); URINE NITRITE NEGATIVE (NEGATIVE); URINE PROTEIN 1+ (NEGATIVE); URINE UROBILINOGEN NEGATIVE mg/dL (0.2-1.0)
[2018-02-27 18:40] LABS: EPI CELLS RARE /HPF (FEW); URINE MUCUS RARE
[2018-02-27 23:47] VITALS: BMI 31.7
[2018-02-28 08:17] LABS: HEMATOCRIT 31.7 % (32.4-45.2); HEMOGLOBIN 10.3 GM/dL (10.7-15.3); MCH 28.7 pg (25.7-33.7); MCHC 32.5 g/dl (32.0-36.0); MEAN CELL VOLUME 88.3 fl (80-96); MEAN PLT VOLUME 10.6 fl (7.5-11.1); PLATELET COUNT 125 K/MM3 (134-434); RBC 3.59 M/mm3 (3.60-5.2); RDW 15.6 % (11.6-15.6); WHITE BLOOD COUNT 4.1 K/mm3 (4.0-10.0)
[2018-02-28 09:06] LABS: ANION GAP 9 MMOL/L (8-16); BLOOD UREA NITROGEN 20 mg/dL (7-18); CHLORIDE 104 mmol/L (98-107); CO2 30 mmol/L (21-32); CREATININE 0.9 mg/dL (0.55-1.3); GLUCOSE,RANDOM 108 mg/dL (74-106); POTASSIUM 3.5 mmol/L (3.5-5.1); SODIUM 143 mmol/L (136-145)
--- NOTE | 2018-02-28 10:39 | CON.GI ---
Consult Consult Specialty:: GI - History of Present Illness History of Present Illness: 87 y/o female with PMH of diverticular bleeding, was admitted because of recurrent rectal bleeding. There was no chest pain, LOC and weaknees, She received IV hydartion and hgb was slightly decreased. For more than 16 hours, no reports of active bleeding. - Past Medical History Cardio/Vascular: Yes: HTN, Hyperlipdemia Gastrointestinal: Yes: Constipation, Diverticulitis (hx of 2 previous episodes 2012 required 4 units PRBC / 2012), Diverticulosis ...: No Musculoskeletal: Yes: Osteoarthritis - Alcohol/Substance Use Hx Alcohol Use: No History of Substance Use: reports: None - Smoking History Smoking history: Never smoked Have you smoked in the past 12 months: No Aproximately how many cigarettes per day: 0 - Social History ADL: Independent History of Recent Travel: No Home Medications - Allergies Allergies/Adverse Reactions: Allergies Allergy/AdvReac Type Severity Reaction Status Date / Time No Known Drug Allergies Allergy Verified 02/27/18 15:00 - Home Medications Home Medications: Ambulatory Orders Amlodipine Besylate [Norvasc -] 10 mg PO DAILY #0 tablet 02/03/13 Valsartan/Hydrochlorothiazide [Diovan Hct 320-25 mg Tablet] 1 combo PO DAILY Aspirin 81 mg PO DAILY #0 tab.chew 09/02/13 Anastrozole [Arimidex -] 1 mg PO DAILY 09/10/16 Cholecalciferol (Vitamin D3) [Vitamin D3] 50,000 unit PO WEEKLY 09/10/16 Metoprolol Succinate [Toprol Xl] 50 mg PO DAILY 09/10/16 Oxybutynin Chloride 5 mg PO DAILY 09/10/16 Amlodipine Besylate [Norvasc -] 10 mg PO DAILY #0 tablet 09/12/16 Anastrozole [Arimidex -] 1 mg PO DAILY tablet 09/12/16 Docusate Sodium [Colace -] 200 mg PO BID #120 tab 09/12/16 Polyethylene Glycol 3350 [Miralax 119 gm Btl -] 17 gm PO BID #1 bottle 09/12/16 Physical Exam-GI Vital Signs: Vital Signs Temperature 98.1 F 02/28/18 02:00 Pulse Rate 86 02/28/18 02:00 Respiratory Rate 18 02/28/18 02:00 Blood Pressure 137/67 02/28/18 02:00 O2 Sat by Pulse Oximetry (%) 98 02/27/18 22:16 Constitutional: Yes: Well Nourished, Poor Hygeine HENT: Yes: Atraumatic Neck: Yes: Supple Cardiovascular: Yes: Regular Rate and Rhythm Respiratory: Yes: CTA Bilaterally ...Palpate: Yes: Soft. No: Firm/Rigid, Guarding, Hepatomegaly, Mass, Pulsatile Mass, Splenomegaly, Tenderness Labs: CBC, BMP 02/28/18 07:50 02/28/18 07:50 INR, PTT INR 1.20 (0.83-1.09) H 02/27/18 15:45 Problem List - Problems (1) Rectal bleeding Assessment/Plan: most likely resolved diverticular bleeding R> advance diet if no further bleeding ok to discharge and gi as an outpatient Code(s): K62.5 - HEMORRHAGE OF ANUS AND RECTUM
--- NOTE | 2018-02-28 11:00 | HP ---
Admitting History and Physical - Admission Chief Complaint: rectal bleeding History of Present Illness: The patient is a 87 year old female, with a significant past medical history of HTN, [place], GI bleed,Breast Ca, diverticulitis, who presents to the emergency department with bright red blood per rectum x 2 days. She reports 3 episodes of "blood clots" and dark stool. She denies abdominal pain, nausea or vomiting. In the ER she reported seeing brown stool mixed with red blood and a few clots. Denies CP/SOB/lightheadedness/palpitations. The patient denies chest pain, shortness of breath, headache and dizziness. The patient denies fever, chills, nausea, vomit, diarrhea and constipation. History Source: Patient Limitations to Obtaining History: No Limitations - Past Medical History Cardiovascular: Yes: HTN, Hyperlipdemia Gastrointestinal: Yes: Constipation, Diverticulitis (hx of 2 previous episodes 2011 required 4 units PRBC / 2012), Diverticulosis ...: No Heme/Onc: Yes: Cancer (breast) Musculoskeletal: Yes: Osteoarthritis - Smoking History Smoking history: Never smoked Have you smoked in the past 12 months: No Aproximately how many cigarettes per day: 0 - Alcohol/Substance Use Hx Alcohol Use: No History of Substance Use: reports: None - Social History ADL: Independent History of Recent Travel: No Home Medications - Allergies Allergies/Adverse Reactions: Allergies Allergy/AdvReac Type Severity Reaction Status Date / Time No Known Drug Allergies Allergy Verified 02/27/18 15:00 - Home Medications Home Medications: Ambulatory Orders Amlodipine Besylate [Norvasc -] 10 mg PO DAILY #0 tablet 02/03/13 Valsartan/Hydrochlorothiazide [Diovan Hct 320-25 mg Tablet] 1 combo PO DAILY Aspirin 81 mg PO DAILY #0 tab.chew 09/02/13 Anastrozole [Arimidex -] 1 mg PO DAILY 09/10/16 Cholecalciferol (Vitamin D3) [Vitamin D3] 50,000 unit PO WEEKLY 09/10/16 Metoprolol Succinate [Toprol Xl] 50 mg PO DAILY 09/10/16 Oxybutynin Chloride 5 mg PO DAILY 09/10/16 Amlodipine Besylate [Norvasc -] 10 mg PO DAILY #0 tablet 09/12/16 Anastrozole [Arimidex -] 1 mg PO DAILY tablet 09/12/16 Docusate Sodium [Colace -] 200 mg PO BID #120 tab 09/12/16 Polyethylene Glycol 3350 [Miralax 119 gm Btl -] 17 gm PO BID #1 bottle 09/12/16 Review of Systems - Review of Systems Constitutional: denies: Chills, Fever, Loss of Appetite, Unintentional Wgt. Loss Eyes: reports: No Symptoms. denies: Blind Spots HENT: reports: No Symptoms Neck: reports: No Symptoms Cardiovascular: reports: No Symptoms. denies: Chest Pain, Palpitations, Shortness of Breath Respiratory: reports: No Symptoms. denies: Exercise Intolerance, SOB, SOB on Exertion Gastrointestinal: reports: Rectal Bleeding. denies: Abdominal Pain, Bloating, Constipation, Indigestion, Nausea, Vomiting, Vomiting Blood Genitourinary: reports: No Symptoms Breasts: reports: No Symptoms Reported Musculoskeletal: reports: No Symptoms Integumentary: reports: No Symptoms Neurological: reports: No Symptoms Endocrine: reports: No Symptoms Hematology/Lymphatic: reports: No Symptoms Psychiatric: reports: No Symptoms Physical Examination Vital Signs: Vital Signs Temperature 98.1 F 02/28/18 02:00 Pulse Rate 86 02/28/18 02:00 Respiratory Rate 18 02/28/18 02:00 Blood Pressure 137/67 02/28/18 02:00 O2 Sat by Pulse Oximetry (%) 98 02/27/18 22:16 Constitutional: Yes: Well Nourished, No Distress, Calm, Obese Eyes: Yes: Conjunctiva Clear, EOM Intact HENT: Yes: Atraumatic, Normocephalic Neck: Yes: Supple, Trachea Midline Cardiovascular: Yes: Regular Rate and Rhythm Respiratory: Yes: Regular, CTA Bilaterally Gastrointestinal: Yes: Normal Bowel Sounds, Soft, Abdomen, Obese. No: Distention, Tenderness, Tenderness, Rebound, Vomiting ...Rectal Exam: Yes: Guaiac Positive Renal/: Yes: WNL Extremities: Yes: WNL Edema: No Peripheral Pulses WNL: Yes Integumentary: Yes: WNL Neurological: Yes: WNL, Alert, Oriented ...Motor Strength: WNL Psychiatric: Yes: WNL, Alert, Oriented Labs: CBC, BMP 02/28/18 07:50 02/28/18 07:50 Problem List - Problems (1) Rectal bleeding Code(s): K62.5 - HEMORRHAGE OF ANUS AND RECTUM (2) Diverticula of colon Code(s): K57.30 - DVRTCLOS OF LG INT W/O PERFORATION OR ABSCESS W/O BLEEDING (3) Hypertension Code(s): I10 - ESSENTIAL (PRIMARY) HYPERTENSION Assessment/Plan # rectal bleeding hx of diverticulitis with bleed 2012 will trend H/H GI consult Full liquid diet until assessed by GI Surgical consult if continued rectal bleed ( none since admission) # all home meds resumed
[2018-02-28] MEDS: ASPIRIN 81 MG CHEWABLE TABLETS PO SCH (11:13)
[2018-02-28] MEDS: OXYBUTYNIN CHLORIDE 5 MG TABLET PO SCH (11:15)
[2018-02-28] MEDS: LOSARTAN 50MG/HCTZ 12.5MG 1 TAB (FP) PO SCH (11:15)
[2018-02-28] MEDS: ANASTROZOLE 1 MG TABLET PO SCH (11:16)
[2018-02-28] MEDS: DOCUSATE SODIUM 100 MG CAPSULE (FP) PO SCH (21:02)
[2018-02-28] MEDS: POLYETHYLENE GLYCOL 3350 119 GM BTL PO SCH (21:02)
[2018-03-01 08:21] LABS: EOS % 3.7 % (0-4.5); HEMATOCRIT 30.2 % (32.4-45.2); HEMOGLOBIN 9.7 GM/dL (10.7-15.3); LYMPH % 37.4 % (8-40); MCH 28.7 pg (25.7-33.7); MCHC 32.2 g/dl (32.0-36.0); MEAN CELL VOLUME 89.1 fl (80-96); MONO % 8.9 % (3.8-10.2); PLATELET COUNT 114 K/MM3 (134-434); RBC 3.39 M/mm3 (3.60-5.2); RDW 15.7 % (11.6-15.6); WHITE BLOOD COUNT 4.5 K/mm3 (4.0-10.0)
[2018-03-01] MEDS ORDERED: PT OWN MED DRAWER 7, Y5N ONE (10:07)
[2018-03-01] MEDS: amLODIPine BESYLATE 10 MG TABLET (FP) PO SCH (10:08)
[2018-03-01] MEDS: ASPIRIN 81 MG CHEWABLE TABLETS PO SCH (10:08)
[2018-03-01] MEDS: OXYBUTYNIN CHLORIDE 5 MG TABLET PO SCH (10:08)
[2018-03-01] MEDS: LOSARTAN 50MG/HCTZ 12.5MG 1 TAB (FP) PO SCH (10:09)
[2018-03-01] MEDS: ANASTROZOLE 1 MG TABLET PO SCH (10:09)
[2018-03-01] MEDS: POLYETHYLENE GLYCOL 3350 119 GM BTL PO SCH ×2 (10:09→21:04)
[2018-03-01] MEDS: DOCUSATE SODIUM 100 MG CAPSULE (FP) PO SCH ×2 (10:09→21:03)
--- NOTE | 2018-03-01 14:01 | PN ---
Progress Note (short form) - Note Progress Note: patient seen and examined in room reports 2 episodes of passing blood clots "not too much" no lightheadedness no abdominal pain Vital Signs Period Temp Pulse Resp BP Sys/Caldera Pulse Ox Last 24 Hr 97.6 F-98.5 F 60-95 16-20 95-150/54-73 95-95 neck supple heart s1/S2 lung clear bilat abd soft nontender ext no calf tenderness no edema Microbiology 02/27/18 18:21 Urine - Urine Clean Catch Urine Culture - Final Contaminated: Please Repeat Active Medications Amlodipine Besylate (Norvasc -) 10 mg PO DAILY [facility] Last Admin: 03/01/18 10:08 Dose: 10 mg Anastrozole (Arimidex -) 1 mg PO DAILY [facility] Last Admin: 03/01/18 10:09 Dose: 1 mg Aspirin (Asa -) 81 mg PO DAILY [facility] Last Admin: 03/01/18 10:08 Dose: 81 mg Docusate Sodium (Colace -) 200 mg PO BID [facility] Last Admin: 03/01/18 10:09 Dose: 200 mg HCTZ/Losartan Potassium (Hyzaar -) 2 tab PO DAILY [facility] Last Admin: 03/01/18 10:09 Dose: 2 tab Metoprolol Succinate (Toprol Xl -) 50 mg PO DAILY [facility] Last Admin: 03/01/18 10:08 Dose: 50 mg Oxybutynin Chloride (Ditropan -) 5 mg PO DAILY [facility] Last Admin: 03/01/18 10:08 Dose: 5 mg Polyethylene Glycol (Miralax (For Daily Use) -) 17 gm PO BID [facility] Last Admin: 03/01/18 10:09 Dose: 17 gm # Rectal bleed Diverticular bleed trend H/H -- slight drop today - however + bloody stool today continue diet # HTN tend Bp may need better control back on home meds / adjust as needed Problem List - Problems (1) Rectal bleeding Code(s): K62.5 - HEMORRHAGE OF ANUS AND RECTUM (2) Diverticula of colon Code(s): K57.30 - DVRTCLOS OF LG INT W/O PERFORATION OR ABSCESS W/O BLEEDING (3) Hypertension Code(s): I10 - ESSENTIAL (PRIMARY) HYPERTENSION
--- NOTE | 2018-03-01 19:16 | EKG ---
Test Reason : Blood Pressure : / mmHG Vent. Rate : 083 BPM Atrial Rate : 083 BPM P-R Int : 276 ms QRS Dur : 090 ms QT Int : 406 ms P-R-T Axes : 051 -11 032 degrees QTc Int : 477 ms SINUS RHYTHM WITH 1ST DEGREE A-V BLOCK LOW VOLTAGE QRS CANNOT RULE OUT ANTERIOR INFARCT (CITED ON OR BEFORE 08-SEP-2016) ABNORMAL ECG WHEN COMPARED WITH ECG OF 08-SEP-2016 15:15, NO SIGNIFICANT CHANGE WAS FOUND Confirmed by EDU SHEA MD ([id number]) on 03/01/2018 7:16:20 PM Referred By: Confirmed By:EDU SHEA MD
[2018-03-02 08:00] LABS: BASO % 0.7 % (0-2.0); EOS % 4.9 % (0-4.5); HEMATOCRIT 30.8 % (32.4-45.2); LYMPH % 35.4 % (8-40); MCH 28.9 pg (25.7-33.7); MCHC 32.6 g/dl (32.0-36.0); MEAN CELL VOLUME 88.8 fl (80-96); MEAN PLT VOLUME 10.7 fl (7.5-11.1); MONO % 7.7 % (3.8-10.2); NEUT % 51.3 % (42.8-82.8); PLATELET COUNT 122 K/MM3 (134-434); RBC 3.47 M/mm3 (3.60-5.2); RDW 15.8 % (11.6-15.6); WHITE BLOOD COUNT 4.9 K/mm3 (4.0-10.0)
[2018-03-02] MEDS ORDERED: PT OWN MED DRAWER 7, Y5N ONE (09:56)
[2018-03-02] MEDS: ASPIRIN 81 MG CHEWABLE TABLETS PO SCH (09:57)
[2018-03-02] MEDS: ANASTROZOLE 1 MG TABLET PO SCH (09:57)
[2018-03-02] MEDS: OXYBUTYNIN CHLORIDE 5 MG TABLET PO SCH (09:57)
[2018-03-02] MEDS: amLODIPine BESYLATE 10 MG TABLET (FP) PO SCH (09:57)
[2018-03-02] MEDS: DOCUSATE SODIUM 100 MG CAPSULE (FP) PO SCH (09:57)
[2018-03-02] MEDS: LOSARTAN 50MG/HCTZ 12.5MG 1 TAB (FP) PO SCH (09:58)
[2018-03-02] MEDS: POLYETHYLENE GLYCOL 3350 119 GM BTL PO SCH (09:59)
--- NOTE | 2018-03-02 12:58 | DS ---
Physical Examination Vital Signs: Vital Signs Temperature 98.8 F 03/02/18 10:00 Pulse Rate 71 03/02/18 10:00 Respiratory Rate 20 03/02/18 10:00 Blood Pressure 118/67 03/02/18 10:00 O2 Sat by Pulse Oximetry (%) 97 03/02/18 09:00 Constitutional: Yes: Well Nourished, No Distress, Calm Eyes: Yes: WNL, Conjunctiva Clear, EOM Intact HENT: Yes: WNL, Atraumatic, Normocephalic, Tonsillar Exudate Neck: Yes: WNL, Supple, Trachea Midline Cardiovascular: Yes: Regular Rate and Rhythm Respiratory: Yes: CTA Bilaterally Gastrointestinal: Yes: Normal Bowel Sounds, Soft Renal/: Yes: WNL Musculoskeletal: Yes: WNL Extremities: Yes: WNL Edema: No Peripheral Pulses WNL: Yes Integumentary: Yes: WNL Wound/Incision: Yes: Clean/Dry Neurological: Yes: WNL, Alert, Oriented ...Motor Strength: WNL Psychiatric: Yes: WNL, Alert, Oriented Labs: CBC, BMP 03/02/18 06:45 02/28/18 07:50 Discharge Summary Reason For Visit: RECTAL HEMORRAGE Current Active Problems Rectal bleeding (Acute) HTN HLD Condition: Guarded - Instructions Referrals: Estella Rodriguez MD [Primary Care Provider] - Disposition: HOME - Home Medications Comprehensive Discharge Medication List: Ambulatory Orders Amlodipine Besylate [Norvasc -] 10 mg PO DAILY #0 tablet 02/03/13 Valsartan/Hydrochlorothiazide [Diovan Hct 320-25 mg Tablet] 1 combo PO DAILY Aspirin 81 mg PO DAILY #0 tab.chew 09/02/13 Anastrozole [Arimidex -] 1 mg PO DAILY 09/10/16 Cholecalciferol (Vitamin D3) [Vitamin D3] 50,000 unit PO WEEKLY 09/10/16 Metoprolol Succinate [Toprol Xl] 50 mg PO DAILY 09/10/16 Oxybutynin Chloride 5 mg PO DAILY 09/10/16 Amlodipine Besylate [Norvasc -] 10 mg PO DAILY #0 tablet 09/12/16 Anastrozole [Arimidex -] 1 mg PO DAILY tablet 09/12/16 Docusate Sodium [Colace -] 200 mg PO BID #120 tab 09/12/16 Polyethylene Glycol 3350 [Miralax 119 gm Btl -] 17 gm PO BID #1 bottle 09/12/16
[2018-03-02 14:20] VITALS: BP 101/54; PULSE 60; TEMP 98.2
== END 2018-03-02 19:06 | disposition home or self-care (01) | DRG 378 ==
LOC: JER 14:35 → JERBED 18:53 → J4S 23:26
PROVIDERS: ADMIT Family Medicine; ATTEND Family Medicine
DX: K57.21 Diverticulitis of large intestine with perforation and abscess with bleeding (principal); R71.0 Precipitous drop in hematocrit; I10 Essential (primary) hypertension; E11.9 Type 2 diabetes mellitus without complications; I25.2 Old myocardial infarction; K59.00 Constipation, unspecified; Z85.3 Personal history of malignant neoplasm of breast; M19.90 Unspecified osteoarthritis, unspecified site
CPT/HCPCS: 36415; 80048; 80053; 81003; 81015; 82272; 85025; 85027; 85610; 86850; 86900; 86901; 87086; 93005; 93010; 99285-25

== ENCOUNTER 2021-03-10 17:52 | Emergency (ER) | payer OTHER, BC ==
[2021-03-10 18:27] VITALS: BP 144/82; PULSE 79; TEMP 97.9; BMI 34.9
[2021-03-10] MEDS ORDERED: valACYclovir HCL 1000 MG TABLET PO ONE (19:35)
[2021-03-10] MEDS ORDERED: valACYclovir HCL 500 MG TABLET (FP) ONE (19:42)
== END 2021-03-10 19:51 | disposition home or self-care (01) ==
LOC: FER 17:52
DX: B02.9 Zoster without complications (principal)
CPT/HCPCS: 99283-25